=== PATIENT | female | born 1980 | race Caucasian/White ===

== ENCOUNTER 2016-10-03 19:50 | Emergency (ER) | payer BC ==
[2016-10-03 20:05] VITALS: BP 133/91
[2016-10-03] MEDS ORDERED: Ibuprofen 600 MG Tab PO ONE (20:15)
--- NOTE | 2016-10-03 20:21 | EDM.PDOC ---
ED HPI GENERAL MEDICAL PROBLEM - General Chief Complaint: Lower Extremity Injury/Pain Stated Complaint: Right ankle pain Time Seen by Provider: 10/03/16 20:05 Source of Information: Reports: Patient, RN Notes Reviewed History Limitations: Reports: No Limitations - History of Present Illness INITIAL COMMENTS - FREE TEXT/NARRATIVE: 36 year old female presents to the ED with right, lateral ankle pain and swelling. The patient reports rolling her ankle yesterday and again today. She felt a pop today and has pain with weight bearing. She's sprained this ankle in the past. No previous fractures. She did not take anything for pain prior to arrival. No numbness or tingling. Right Ankle Pain Score (Numeric/FACES): 3 - Related Data Allergies Allergy/AdvReac Type Severity Reaction Status Date / Time No Known Allergies Allergy Verified 10/03/16 20:06 Home Meds: Home Meds Multivitamin [Multivitamins] 1 tab PO DAILY 10/03/16 [History] Review of Systems - Review of Systems Review Of Systems: See Below Musculoskeletal: Reports: Joint Pain, Joint Swelling Skin: Reports: Bruising Neurological: Denies: Numbness, Tingling ED EXAM, GENERAL - Physical Exam Exam: See Below Exam Limited By: No Limitations General Appearance: Alert, WD/WN, No Apparent Distress Extremities: Other (Bruising and swelling to right, lateral ankle. Drawer test, inversion, and eversion tests are normal. CMS intact distally. No pain to mid- foot or toes. ) Neurological: Alert, Normal Cognition, No Motor/Sensory Deficits Skin Exam: Warm, Dry, Intact Course - Vital Signs Last Recorded V/S: Last Vital Signs Temp 98.6 F 10/03/16 20:00 Pulse 85 10/03/16 20:00 Resp 16 10/03/16 20:00 BP 133/91 H 10/03/16 20:00 Pulse Ox 100 10/03/16 20:00 - Orders/Labs/Meds Orders: Active Orders 24 hr Category Date Time Status Ankle Min 3V Rt [CR] Stat Exams 10/03/16 20:15 Taken Meds: Medications Discontinued Medications Generic Name Dose Route Start Last Admin Trade Name Freq PRN Reason Stop Dose Admin Ibuprofen 600 mg 10/03/16 20:15 10/03/16 20:19 Motrin PO 10/03/16 20:16 600 mg ONETIME ONE Administration - Re-Assessments/Exams Free Text/Narrative Re-Assessment/Exam: Xray is negative for bony abnormality. Placed in ankle brace. Will have patient f/u with ortho if not improved in 7-14 days Departure - Departure Time of Disposition: 20:42 Disposition: Home, Self-Care 01 Condition: Good Clinical Impression: Ankle sprain Qualifiers: Encounter type: initial encounter Involved ligament of ankle: unspecified ligament Laterality: right Qualified Code(s): S93.401A - Sprain of unspecified ligament of right ankle, initial encounter - Discharge Information Referrals: PCP,None [Primary Care Provider] - Forms: ED Department Discharge Additional Instructions: Rest, ice and elevate Follow-up with one of our Orthopedic Surgeons in 7-14 days for recheck if not improved Dr. Taylor [phone] Dr. Partida [phone] Right ankle brace as tolerated. Tylenol or Ibuprofen as needed for pain - My Orders Last 24 Hours: My Active Orders 10/03/16 20:15 Ankle Min 3V Rt [CR] Stat - Assessment/Plan Last 24 Hours: My Active Orders 10/03/16 20:15 Ankle Min 3V Rt [CR] Stat
--- NOTE | 2016-10-04 07:25 | CR ---
Right ankle: Four views of the right ankle were obtained. Comparison: No previous study. Soft tissue swelling is identified. Ankle mortise is symmetric. No fracture, dislocation or other bony abnormality is identified. Impression: 1. Soft tissue swelling. No acute bony abnormality is identified on right ankle exam. Diagnostic code #2
== END 2016-10-03 20:50 | disposition home or self-care (01) ==
LOC: JD.ED 19:50
DX: S93.401A Sprain of unspecified ligament of right ankle, initial encounter (principal); Z79.899 Other long term (current) drug therapy; W18.40XA Slipping, tripping and stumbling without falling, unspecified, initial encounter
CPT/HCPCS: 73610; 99283; A9270; 99282

== ENCOUNTER 2019-02-07 18:22 | Emergency (ER) | payer SELFPAY ==
[2019-02-07 18:32] VITALS: BP 114/58; PULSE 98
--- NOTE | 2019-02-07 18:35 | EDM.PDOC ---
ED HPI GENERAL MEDICAL PROBLEM - General Chief Complaint: Respiratory Problem Stated Complaint: RESPIRATORY ISSUES Time Seen by Provider: 02/07/19 18:30 Source of Information: Reports: Patient History Limitations: Reports: No Limitations - History of Present Illness INITIAL COMMENTS - FREE TEXT/NARRATIVE: Patient's unfortunate 38-year-old female who presents emergency Department today with complaint cough congestion runny nose. She has been symptomatically past 6 days. She's had a nonproductive cough runny nose sinus congestion and mild sore throat. Patient reports she's been tolerating fluids well no nausea no vomiting no shortness of breath - Related Data Allergies Allergy/AdvReac Type Severity Reaction Status Date / Time No Known Allergies Allergy Verified 02/07/19 18:32 Home Meds: Home Meds . 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 Denies: Shortness of Breath, Sputum ED EXAM, GENERAL - Physical Exam Exam: See Below Exam Limited By: No Limitations General Appearance: Alert, WD/WN, Mild Distress Ears: Normal External Exam, Normal Canal, Hearing Grossly Normal, Normal TMs Nose: Normal Mucosa, No Blood, Other (Mild erythema bilateral nares) Throat/Mouth: Other (Mild posterior erythema with postnasal drainage) Head: Atraumatic, Normocephalic Neck: Normal Inspection, Supple, Non-Tender, Full Range of Motion Respiratory/Chest: No Respiratory Distress, Lungs Clear, Normal Breath Sounds, No Accessory Muscle Use, Chest Non-Tender Cardiovascular: Normal Peripheral Pulses, Regular Rate, Rhythm, No Edema, No Gallop, No JVD, No Murmur, No Rub GI/Abdominal: Normal Bowel Sounds, Soft, Non-Tender, No Organomegaly, No Distention, No Abnormal Bruit, No Mass Back Exam: Normal Inspection, Full Range of Motion, NT Extremities: Normal Inspection, Normal Range of Motion, Non-Tender, Normal Capillary Refill, No Pedal Edema Neurological: Alert Skin Exam: Warm, Dry, No Rash Course - Vital Signs Last Recorded V/S: Last Vital Signs Temp 99.6 F 02/07/19 18:29 Pulse 98 02/07/19 18:29 Resp 20 02/07/19 18:29 BP 114/58 L 02/07/19 18:29 Pulse Ox 98 02/07/19 18:29 Departure - Departure Time of Disposition: 19:41 Disposition: Home, Self-Care 01 Condition: Good Clinical Impression: Acute sinusitis Qualifiers: Sinusitis location: unspecified location Recurrence: not specified as recurrent Qualified Code(s): J01.90 - Acute sinusitis, unspecified - Discharge Information Referrals: PCP,None [Primary Care Provider] - Forms: ED Department Discharge, ED Return to Work/School Form Additional Instructions: Home, rest, adequate fluids, Tylenol for fever or pain, return as needed for worsening condition Sepsis Event Note - Evaluation Sepsis Screening Result: No Definite Risk - Focused Exam Vital Signs: Vital Signs Temp Pulse Resp BP Pulse Ox 02/07/19 18:29 99.6 F 98 20 114/58 L 98 Date Exam was Performed: 02/07/19 Time Exam was Performed: 19:41
[2019-02-07] MEDS ORDERED: cefTRIAXone 1 GM Vial IM ONE (19:46)
== END 2019-02-07 20:00 | disposition home or self-care (01) ==
LOC: JD.ED 18:22
DX: J01.90 Acute sinusitis, unspecified (principal)
CPT/HCPCS: 87804; 96372; 99283; J0696; 99282